=== PATIENT | male | born 1960 ===

== ENCOUNTER 2022-03-28 10:30 | Outpatient (REF) | payer MEDICARE, SELFPAY ==
[2022-03-28 11:13] LABS: MANUAL DIFF FLAG NO
[2022-03-28 11:26] LABS: Lactic Acid 1.4 mmol/L (0.5-2.0)
[2022-03-28 11:44] LABS: Basophils Absolute Auto 0.1 X10*3/uL (0.0-0.2); Basophils Percent Auto 1.1 % (0-2); Eosinophils Absolute Auto 0.4 X10*3/uL (0.0-0.4); Eosinophils Percent Auto 4.3 % (0-4); Hemoglobin 15.3 g/dl (14.0-18.0); Imm Gran Abs Auto 0.04 X10*3/uL (0.00-0.03); Imm Gran Pct Auto 0.4 % (0.0-0.4); Lymphocytes Absolute Auto 3.2 X10*3/uL (1.2-4.9); Lymphocytes Percent Auto 34.1 % (20-40); Mean Corpuscular HGB Conc 34.8 g/dl (31.0-36.0); Mean Corpuscular Hemoglobin 31.5 pg (27.0-33.0); Mean Corpuscular Volume 90.7 fL (80.0-98.0); Mean Platelet Volume 11.2 fL (9.4-12.4); Monocytes Absolute Auto 1.1 X10*3/uL (0.1-1.2); Monocytes Percent Auto 11.4 % (2-11); Neutrophils Absolute Auto 4.6 x10*3/uL (2.0-8.3); Neutrophils Percent Auto 48.7 % (45-73); Platelet Count 236 X10*3/uL (160-400); Red Blood Count 4.85 X10*6/uL (4.60-5.80); White Blood Count 9.4 X10*3/uL (4.8-10.8)
[2022-03-28 12:11] LABS: Appearance Urine Clear; Color Urine Yellow; Glucose Urine UA Negative (Negative); Leukocyte Esterase Urine Negative (Negative); Nitrite Urine Negative (Negative); PH 7.5 (5.0-9.0); Urine Blood Negative (Negative); Urine Ketones Negative (Negative); Urine Protein Negative (Neg-Trace)
[2022-03-28 12:31] LABS: Alanine Aminotransferase 23 U/L (0-40); Albumin Level 4.8 g/dL (3.5-5.0); Alkaline Phosphatase 92 U/L (39-117); Anion Gap 13 (12-20); Aspartate Amino Transferase 23 U/L (5-37); Bilirubin Total 0.9 mg/dL (0.0-1.0); Blood Urea Nitrogen 14 mg/dL (9-16); Calcium 9.7 mg/dL (8.4-10.2); Carbon Dioxide 26 mmol/L (22-29); Chloride 104 mmol/L (96-108); Cholesterol 276 mg/dL; Estimated Glomerular Filt Rate > 60; Glucose Fasting 96 mg/dL (60-99); HDL Cholesterol 45 mg/dL; LDL Cholesterol Calculated 187 mg/dl; Potassium 3.8 mmol/L (3.3-5.1); Sodium 139 mmol/L (135-145); Total Protein 7.4 g/dL (6.5-8.0); Triglycerides 222 mg/dL
[2022-03-28 12:37] LABS: Prostate Specific Antigen Scr 0.68 ng/mL (<0.05-4.0); TSH reflex Free T4 1.65 uIU/mL (0.32-4.0)
[2022-03-31 01:23] LABS: A. Phagocytphilium DNA,RT-PCR NOT DETECTED (NOT DETECTED); Babesia Microti DNA, RT-PCR NOT DETECTED (NOT DETECTED); Borrelia Miyamotoi,DNA RT-PCR NOT DETECTED (NOT DETECTED); E.Chaffeensis DNA RT-PCR NOT DETECTED (NOT DETECTED); Lyme(Borrelia ssp)DNA RT-PCR NOT DETECTED (NOT DETECTED)
[2022-04-03 08:39] LABS: CK-BB None Detected (None Detected); CK-MB 0 % (<5); CK-MM 100 % (95-100); Creatine Kinase,Total,Serum 55 U/L (44-196)
== END 2022-03-28 10:31 | disposition home or self-care (01) ==
LOC: HO.HMGCLDS 10:30
PROVIDERS: PCP Nurse Practitioner Family; Visit Provider Nurse Practitioner Family
DX: M79.10 Myalgia, unspecified site (principal); Z12.5 Encounter for screening for malignant neoplasm of prostate; E78.5 Hyperlipidemia, unspecified
CPT/HCPCS: 36415; 80053; 80061; 81003; 82552; 83605; 84153; 84443; 85025; 87798; 87801

== ENCOUNTER 2022-07-10 08:54 | Outpatient (REF) | payer MEDICARE, SELFPAY ==
[2022-07-10 12:00] LABS: Alanine Aminotransferase 22 U/L (0-40); Albumin Level 4.9 g/dL (3.5-5.0); Alkaline Phosphatase 78 U/L (39-117); Anion Gap 14 (12-20); Aspartate Amino Transferase 23 U/L (5-37); Bilirubin Total 0.9 mg/dL (0.0-1.0); Blood Urea Nitrogen 16 mg/dL (9-16); Calcium 9.4 mg/dL (8.4-10.2); Carbon Dioxide 23 mmol/L (22-29); Chloride 106 mmol/L (96-108); Cholesterol 123 mg/dL; Estimated Glomerular Filt Rate > 60; Glucose Fasting 126 mg/dL (60-99); HDL Cholesterol 37 mg/dL; LDL Cholesterol Calculated 75 mg/dl; Potassium 4.1 mmol/L (3.3-5.1); Sodium 139 mmol/L (135-145); Total Protein 7.2 g/dL (6.5-8.0); Triglycerides 58 mg/dL
== END 2022-07-10 08:55 | disposition home or self-care (01) ==
LOC: HO.HMGCLDS 08:54
PROVIDERS: PCP Nurse Practitioner Family; Visit Provider Nurse Practitioner Family
DX: E78.5 Hyperlipidemia, unspecified (principal)
CPT/HCPCS: 36415; 80053; 80061

== ENCOUNTER → 2022-07-25 14:54 | Outpatient (BNVA) | payer MEDICARE, SELFPAY | PROVIDERS: PCP Nurse Practitioner Family; Referring Provider Nurse Practitioner Family; Visit Provider Internal Medicine | DX: I49.9 Cardiac arrhythmia, unspecified (principal); R00.1 Bradycardia, unspecified | CPT/HCPCS: 99202 ==

== ENCOUNTER 2022-09-18 10:44 | Outpatient (RCR) | payer MEDICARE, SELFPAY ==
[2022-09-18 11:03] VITALS: BP 130/90; PULSE 92; O2SAT 98
--- NOTE | 2022-09-18 15:20 | MHC.PT.EP ---
[facility] [place] [facility] [place] [facility] [place] [facility] [address] Ade Meyer [address] [phone] F: [phone] F: [phone] F: [phone] F: [phone] Physical Therapy Plan of Care Date of Evaluation: Date of Surgery: Diagnosis: Myalgia of upper body. Assessment: Pt is a 62 y/o male referred to PT for myalgia of the upper body who presents with upper back myofascial pain and R > L winging scapula resulting in decreased tolerance for lifting objects of weight, performing heavy HH chores, as well as tolerance for exercise secondary to decreased B shoulder strength, increased scapular / shoulder tissue tension, decreased scapular posture, R > L winging scapula, and pain. Pt is deemed an appropriate candidate to receive skilled PT services to address their physical impairments in order to improve their functional ability. Frequency and Duration: The patient will be seen 2 x / wk x 5 wks. Short Term Goals: Initiate home program. Improve baseline pain from 4/10 to < 3/10. Physics Technician Goals: I with home program and postural ed. Improve scapular symmetry with scapular slide test. Pt will improve SPADI outcome measure by at least 13 points. Improve B serratus anterior MMT by at least 1/2 MMT grade; initial R 4-/5, L 4/5. Treatment Plan: Modalities to reduce pain, spasms and effusion. Manual therapy to restore motion and function. Therapeutic exercise to improve strength and flexibility. Neuromuscular re-education for posture and balance. Therapeutic activities to return to functional activities of daily living. Electronically signed by: Kenrick Peters PT. Please sign and return to therapist. Thank you for your referral.
--- NOTE | 2022-10-07 13:56 | MHC.PT.DC ---
[facility] [place] [facility] [place] Office [place] Office [address] Ade Meyer [address] [phone] F: [phone] F: [phone] F: [phone] F: [phone] Physical Therapy Discharge Report Diagnosis: Myalgia of upper body. Date of Surgery: Date of Evaluation: 09/18/22 Date of Discharge: 10/07/22 Treatments to Date: 1 Cancellations to Date: No Shows to Date: Discharge Status: Patient Elected to Stop Discharge Summary: Chauncey called days after his evaluation to inform PT that he is does not wish to participate in the program he initially agreed to during his evaluation. Note: Pt presented with some ideas on his condition and presented therapist with some information regarding trigger points and body toxins/ lactic acid building up in his body and having bradycardia limits his body's ability to remove these toxins. He demonstrated resistance to education that although his research holds some value his material there is modern understanding. Of note he performed non-clinical examinations on himself in the clinic such as reaching up a wall into full abduction and grinding his shoulder hard against it to demonstrate crunching in his shoulder; he was met with appropriate limiting of this behavior and did respond well. My examination found B full cervical and UE AROM, decreased scapular strength and R > L scapular winging likely as a contributing factor and he was able to hear the value of my program I had set for him at least in the moment. I informed him that therapy will include myofascial release and modalities though will not make up his full treatment session and that exercise to re-educate his postural muscles will be an important part of recovery for his condition and prevention especially as he reports passive approaches have failed. Eval vitals: O2 sat 98%, HR 92BPM, BP 130/90. Electronically signed by: Kenrick Peters PT. Please sign and return to therapist. Thank you for your referral.
== END 2022-10-07 14:00 | disposition home or self-care (01) ==
LOC: HO.PTCHIC 10:44
PROVIDERS: PCP Nurse Practitioner Family; Visit Provider Nurse Practitioner Family
DX: M79.10 Myalgia, unspecified site (principal)
CPT/HCPCS: 97110; 97161

== ENCOUNTER → 2022-10-22 08:13 | Outpatient (REF) | payer MEDICARE, SELFPAY ==
--- NOTE | 2022-10-22 08:17 | ECG_ITS ---
Test Reason : BRADYCARDIA Blood Pressure : / mmHG Vent. Rate : 112 BPM Atrial Rate : 112 BPM P-R Int : 132 ms QRS Dur : 074 ms QT Int : 388 ms P-R-T Axes : 038 040 047 degrees QTc Int : 529 ms Sinus tachycardia with Premature atrial complexes in a pattern of bigeminy Otherwise normal ECG No previous ECGs available Referred By: Vineet Cui Electronically Signed By:DEIDRA CABRALES
== END ==
LOC: HO.CARD 08:13
PROVIDERS: PCP Nurse Practitioner Family; Visit Provider Nurse Practitioner Family
DX: R00.1 Bradycardia, unspecified (principal)
CPT/HCPCS: 93005

== ENCOUNTER → 2022-10-22 08:17 | Outpatient (BNV) | payer MEDICARE, SELFPAY | PROVIDERS: PCP Nurse Practitioner Family; Visit Provider Internal Medicine | DX: I49.1 Atrial premature depolarization (principal) | CPT/HCPCS: 93010 ==

== ENCOUNTER 2023-01-13 13:25 | Outpatient (AMB) | payer MEDICARE, SELFPAY ==
--- NOTE | 2023-01-13 13:27 | A.OFFPC_ITS ---
Intake Visit Reasons: SWV G0439 03/24/22 Allergies sertraline [From Zoloft] Allergy (Intermediate, Verified 07/25/22 14:59) Fatigued Tobacco use date assessed: 07/18/22 PFSH Family History (Updated 07/25/22 @ 15:00 by Emeli Solis) Father Diabetes Mother Cancer Social History (Updated 07/25/22 @ 15:00 by mEeli Solis) Housing: House Patient Tobacco Use Status: Former Tobacco user Quit Date: quit 30 years ago e-Cigarette/Vaping Use: Never Used Second Hand Smoke Exposure: No Substance Use Type: Marijuana service: No Current occupational status: disabled Cognitive needs: No Hearing needs: No Vision needs: Yes Questionnaire Thrive Questionnaire Date Thrive assessed: 04/08/22 OSKAR-7 AMB Questionnaire OSKAR-7 Date OSKAR - 7 assessed: 04/08/22 Source: Developed by Drs. Devon Dunn, Dominique Bowman, Hira Raymundo and colleagues, with an educational thomas from [employer]. Physical exam (Primary Care) Tobacco/Smoking Status: Tobacco use Status Tobacco use date assessed 07/18/22 07/18/22 09:38 Patient Tobacco Use Status Former Tobacco user 07/25/22 15:00 e-Cigarette/Vaping Use Never Used 07/25/22 15:00 Thrive Assessment: Date of Thrive Assessment Date Thrive assessed 04/08/22 07/18/22 09:38 Coding
[2023-01-13 13:30] VITALS: BP 170/100; PULSE 73; O2SAT 97
--- NOTE | 2023-01-13 13:32 | A.OFFVIS_ITS ---
Intake Vital Signs 01/13/23 13:30 01/13/23 14:57 Weight 174 lb BP 170/100 H 150/100 H Blood Pressure Location Lt brachial Position Sitting Pulse 73 Pulse Source Pulse Oximeter Pulse Oximetry (%) 97 Oxygen Delivery Method Room Air Intake Visit Reasons: RONIT G0439 03/24/22 Allergies sertraline [From Zoloft] Allergy (Intermediate, Verified 01/13/23 13:30) Fatigued Medication List - Last Reconciled 01/13/23 by RONEY Gu No Known Home Meds Do you need a note to return to daycare/school/sports/work: No HPI HERIBERTOV G0439 03/24/22 HPI Details Pt is here for an SWV. Denies any fever or chills. [place] of care in scan pile. PPP will be scanned in chart and copy will be given to pt. HPI Comments History of Present Illness Details OV: HTN: Blood pressure is elevated today. Refuses any blood pressure medication currently. Dyslipidemia: Pt reports that he stopped taking his statin because he believes it was contributing to his afib. Will order labs. Please see previous note from cardiology. Pt is still talking about a blood flow issue. Encouraged pt to look for primary sources and research doctors that are associated with this. PFSH Family History Father Diabetes Mother Cancer Social History Housing: House Patient Tobacco Use Status: Former Tobacco user Quit Date: quit 30 years ago e-Cigarette/Vaping Use: Never Used Second Hand Smoke Exposure: No Substance Use Type: Marijuana service: No Current occupational status: disabled Cognitive needs: No Hearing needs: No Vision needs: Yes Questionnaire Medicare Wellness Checkup What gender do you identify with?: male During the past 4 weeks, how much have you been bothered by emotional problems such as feeling anxious, depressed, irritable, sad or downhearted, and blue?: slightly During the past 4 weeks, has your physical & emotional health limited your social activities with family, friends, neighbors, or groups?: slightly During the past 4 weeks, how much bodily pain have you generally had?: moderate pain During the past 4 weeks, was someone available to help you if you needed & wanted help?: no, not at all During the past 4 weeks, what was the hardest physical activity you could do for at least 2 minutes?: light Can you get to places out of walking distance without help? (For eg., can you travel alone on buses, taxis or drive your car?): Yes Can you go shopping for groceries or clothes without someone's help?: Yes Can you prepare your own meals?: Yes Can you do your housework without help?: Yes Because of any health problems, do you need the help of another person with your personal care needs such as eating, bathing, dressing or getting around the house?: Yes Can you handle your own money without help?: Yes During the past 4 weeks how have things been going for you?: good & bad parts about equal Are you having difficulties driving your car?: no Do you always fasten your seat belt when you are in a car?: yes, usually During past 4 weeks, have you been bothered by the following: never: Trouble eating well?, Teeth or denture problems? and Problems using the telephone?, seldom: Falling or dizzy when standing up and often: Tiredness or fatigue? Have you fallen 2 or more times in the past year?: No Are you afraid of falling?: No Are you a smoker?: no During the past 4 weeks, how many drinks of wine, beer, or other alcoholic beverages did you have?: no alcohol at all Have you been given information to help with the following?: no: Hazards in your house that might hurt you? and no: Keeping track of your medications? How often do you have trouble taking medicines the way you have been told to take them?: I do not have to take medicine How confident are you that you can control & manage most of your health problems?: not very confident What is your race?: White Mini Mental State Exam (MMSE) Orientation What is the (year) (season) (date) (day) (month)?: year (2022) Where are we (state) (county) (town or city) (hospital) (floor)?: state (pr) Registration Name of 3 unrelated objects clearly and slowly, then ask patient to repeat all 3 of them. (1st repeat determines score. Make sure they can repeat all three): object 1, object 2 and object 3 Attention & Calculation (CHOOSE ONE) Spell WORLD backwards (DLROW): 3 letters Recall Ask patient to repeat the 3 items from question #3.: object 1, object 2 and object 3 Language Show patient a wristwatch & ask what it is. Repeat for pencil.: watch and pencil Ask the patient to repeat the phrase 'No ifs, ands, or buts' after you.: correct Ask the patient to 'take a piece of paper with their right hand' 'fold paper in half' 'place paper on floor': take paper in right hand, fold paper in half and place paper on floor Print the sentence 'CLOSE YOUR EYES' on a piece. If patient actually closes eyes then score.: followed written direction Give patient a blank piece of paper & ask to write a sentence. Score if it contains a noun & verb.: sentence contains subject and verb Score Score: 19 Activity of Daily Living Bathing - sponge bath, tub bath or shower: receives no assistance (gets in/out by self, if usual bathing means Dressing - getting clothes from closets & drawers, including inner/outer garments & fasteners.: gets clothes & gets completely dressed without help Toileting - going to the 'toilet room' for urine/bowel elimination & cleaning self/arranging clothes: goes to toilet room, cleans self, arranges clothes without help Transfer: moves in & out of bed and chair without help (may use support object) ( when i have a flare, i roll around on the floor to extract the toxins ) Continence: controls urination/bowel movements completely by self Feeding: feeds self without help Total Score: 0 Information obtained from: patient Using telephone: independent Traveling: independent Shopping: independent Preparing meals: independent Housework: independent Taking medicine: independent Managing money: independent Review of Systems Const Reports as per HPI Physical Exam Vital Signs: Last Vital Signs Pulse 73 01/13/23 13:30 BP 150/100 H 01/13/23 14:57 Pulse Ox 97 01/13/23 13:30 Oxygen Delivery Method Room Air 01/13/23 13:30 Const General: cooperative Orientation/consciousness: patient oriented x3 Resp Effort & Inspection: normal respiratory effort Auscultation: clear to auscultation bilaterally Cardio Rate: regular rate Rhythm: regular rhythm Heart sounds: S1 normal heart sound present and S2 normal heart sound present Neuro Other: - romberg, can tandem walk, can walk and turn, can rise from sitting to standing, passed whisper test General: patient oriented x3 Psych Appearance: grossly normal Mental Status: mental status grossly normal Speech and movement: Normal speech and movement present Affect: normal affect Attitude: cooperative Thought process: Normal thought process present Thought content: Normal thought content present Insight: Good insight present (Psych) Judgement: Good judgement present (Psych) Assessment & Plan Assessment & Plan (1) Dyslipidemia: Code(s): E78.5 - Hyperlipidemia, unspecified Plan: Labs ordered (2) HTN (hypertension): Code(s): I10 - Essential (primary) hypertension Plan: Labs ordered Plan The patient agreed to the use of a medical records manager for this encounter. Scribed for RONEY Agosto by Darlin No medical records manager, on 01/13/2023 at 13:45 EST Orders: Orders Comprehensive [place]. Panel Fast Today E78.5 - Hyperlipidemia, unspecified, I10 - Essential (primary) hypertension TSH reflex Free T4 Today E78.5 - Hyperlipidemia, unspecified, I10 - Essential (primary) hypertension Lipid Panel Today E78.5 - Hyperlipidemia, unspecified, I10 - Essential (primary) hypertension Complete Blood Count Auto Diff Today E78.5 - Hyperlipidemia, unspecified, I10 - Essential (primary) hypertension UA CC w/rflx Micro + Cult Today E78.5 - Hyperlipidemia, unspecified, I10 - Essential (primary) hypertension Referrals Cologuard Test Z12.11 - Encounter for screening for malignant neoplasm of colon, Z12.12 - Encounter for screening for malignant neoplasm of rectum Coding Level of Care Code Medicare Subsequent (G0439) Est Pt Level 3 (19765) Diagnoses Dyslipidemia E78.5 HTN (hypertension) I10 Advance Care Planning Forms completed: Health Care Proxy (form given to pt), MOLST (form given to pt) and Living will (pt reports this was already done)
[2023-01-13 14:57] VITALS: BP 150/100
== END 2023-01-13 14:28 | disposition home or self-care (01) ==
PROVIDERS: Visit Provider Nurse Practitioner Family
DX: Z00.00 Encounter for general adult medical examination without abnormal findings (principal); E78.5 Hyperlipidemia, unspecified; I10 Essential (primary) hypertension
CPT/HCPCS: G0439

== ENCOUNTER 2023-01-23 08:54 | Outpatient (REF) | payer MEDICARE, SELFPAY ==
[2023-01-23 11:17] LABS: MANUAL DIFF FLAG NO
[2023-01-23 11:33] LABS: Basophils Absolute Auto 0.1 X10*3/uL (0.0-0.2); Basophils Percent Auto 0.9 % (0-2); Eosinophils Absolute Auto 0.3 X10*3/uL (0.0-0.4); Eosinophils Percent Auto 3.6 % (0-4); Hematocrit 47.8 % (42.0-52.0); Hemoglobin 16.3 g/dl (14.0-18.0); Imm Gran Abs Auto 0.03 X10*3/uL (0.00-0.03); Imm Gran Pct Auto 0.3 % (0.0-0.4); Lymphocytes Absolute Auto 2.5 X10*3/uL (1.2-4.9); Lymphocytes Percent Auto 27.8 % (20-40); Mean Corpuscular HGB Conc 34.1 g/dl (31.0-36.0); Mean Corpuscular Hemoglobin 31.8 pg (27.0-33.0); Mean Corpuscular Volume 93.4 fL (80.0-98.0); Mean Platelet Volume 12.1 fL (9.4-12.4); Monocytes Absolute Auto 0.9 X10*3/uL (0.1-1.2); Neutrophils Absolute Auto 5.1 x10*3/uL (2.0-8.3); Neutrophils Percent Auto 57.4 % (45-73); Platelet Count 219 X10*3/uL (160-400); Red Blood Count 5.12 X10*6/uL (4.60-5.80); Red Cell Distribution Width 12.9 % (11.0-16.0); White Blood Count 8.8 X10*3/uL (4.8-10.8)
[2023-01-23 11:55] LABS: Appearance Urine Clear; Color Urine Yellow; Glucose Urine UA Negative (Negative); Leukocyte Esterase Urine Negative (Negative); Nitrite Urine Negative (Negative); Specific Gravity - Urine 1.015 (1.005-1.025); UMIC TRIGGER UACC YES; Urine Blood Trace (Negative); Urine Ketones Negative (Negative); Urine Protein Negative (Neg-Trace)
[2023-01-23 12:01] LABS: Bacteria Urine None Seen (None Seen); Hyaline Casts Urine 0-2 /LPF (0-2); RBC Urine 0-2 /HPF (0-2); Squamous Epithelial Cell Urine 0-2 /HPF (0-2); WBC Urine 0-5 /HPF (0-5)
[2023-01-23 12:05] LABS: Alanine Aminotransferase 19 U/L (0-40); Albumin Level 4.7 g/dL (3.5-5.0); Alkaline Phosphatase 81 U/L (39-117); Anion Gap 11 (12-20); Aspartate Amino Transferase 22 U/L (5-37); Bilirubin Total 0.7 mg/dL (0.0-1.0); Blood Urea Nitrogen 15 mg/dL (9-16); Calcium 9.9 mg/dL (8.4-10.2); Carbon Dioxide 27 mmol/L (22-29); Chloride 104 mmol/L (96-108); Cholesterol 220 mg/dL (<200); Estimated Glomerular Filt Rate > 60; Glucose Fasting 101 mg/dL (60-99); HDL Cholesterol 48 mg/dL (>40); LDL Cholesterol Calculated 154 mg/dL (<100); Potassium 4.1 mmol/L (3.3-5.1); Sodium 138 mmol/L (135-145); Total Protein 7.9 g/dL (6.5-8.0); Triglycerides 92 mg/dL (<150)
[2023-01-23 12:09] LABS: Erythrocyte Sedimentation Rate 2 MM/HR (0-15)
[2023-01-23 12:25] LABS: TSH reflex Free T4 1.61 uIU/mL (0.32-4.0); Vitamin D 25-OH Total 48.2 ng/mL (>30)
== END 2023-01-23 08:55 | disposition home or self-care (01) ==
LOC: HO.HMGCLDS 08:54
PROVIDERS: Absent Provider Internal Medicine; PCP Nurse Practitioner Family; Visit Provider Internal Medicine
DX: R00.1 Bradycardia, unspecified (principal); I10 Essential (primary) hypertension; E78.5 Hyperlipidemia, unspecified
CPT/HCPCS: 36415; 80053; 80061; 81001; 82306; 82550; 84443; 85025; 85652

== ENCOUNTER 2023-04-24 13:08 | Outpatient (AMB) | payer MEDICARE, SELFPAY ==
--- NOTE | 2023-04-24 13:23 | A.OFFPC_ITS ---
Vital Signs 04/24/23 13:24 Height 5 ft 9 in Weight 162 lb 4 oz BMI 24.0 BP 148/92 H Blood Pressure Location Lt brachial Position Sitting Pulse 74 Pulse Source Pulse Oximeter Pulse Oximetry (%) 97 Oxygen Delivery Method Room Air Intake Visit Reasons: Cardio & rheum referral request Intake Note: Pt is here to discuss his low blood volume Allergies sertraline [From Zoloft] Allergy (Intermediate, Verified 04/24/23 13:27) Fatigued Tobacco use date assessed: 04/24/23 Dental Screening Dental Screen Date: 04/24/23 Did you have a dental visit in the last 12 months?: Yes Did you have a dental problem in the last 6 months where you did not have access to dental care?: No Was dental information given to patient?: Patient has dentist HPI Cardio & rheum referral request HPI Details Pt reports difficulty with activity. He states that he is unable to complete tasks because his muscle harden due to trapped toxins. He also reports episodes of dizziness and near-syncope/syncope. Pt states that his heart rate becomes low, has low blood flow and this causes his symptoms. Pt is adamant that he has low blood volume and blood flow. I showed pt his labs which show that his CBC is normal. He has seen cardiology and vascular for this. Pt has a different outlook on medicine than the providers he is seeing. He follows a MD from the early 80s. Due for PSA, will order. Pt's cologuard was positive. Pt is unsure if he would like a colonoscopy, he will think about this, though I will place a referral in the meantime. Denies current fever and chills. HTN: pt is aware and reports he refuses all meds. He thinks it is because he is frustrated when walking into medical facilities, like this one. PFSH Family History Father Diabetes Mother Cancer Social History Housing: House Patient Tobacco Use Status: Former Tobacco user Quit Date: quit 30 years ago e-Cigarette/Vaping Use: Never Used Second Hand Smoke Exposure: No Substance Use Type: Marijuana service: No Current occupational status: disabled Cognitive needs: No Hearing needs: No Vision needs: Yes Questionnaire PHQ-9 Over the last 2 weeks, how often have you been bothered by any of the following problems? 1. Little interest or pleasure in doing things: not at all 2. Feeling down, depressed, or hopeless: not at all 3. Trouble falling or staying asleep, or sleeping too much: more than half the days 4. Feeling tired or having little energy: nearly every day 5. Poor appetite or overeating: not at all 6. Feeling bad about yourself - or that you are a failure or have let yourself or your family down: not at all 7. Trouble concentrating on things, such as reading the newspaper or watching television: several days 8. Moving or speaking so slowly that other people could have noticed. Or the opposite - being so fidgety or restless that you have been moving around a lot more than usual: not at all 9. Thoughts that you would be better off or of hurting yourself in some way: not at all Total score: 6 Depression Screening Interpretation: Negative Depression Screening Done: Yes 12183 - PHQ-9 Billing: Yes Source: Developed by Drs. Devon Dunn, Dominique Bowman, Hira Raymundo and colleagues, with an educational thomas from [employer]. Thrive Questionnaire Date Thrive assessed: 04/24/23 I am a: Patient What is your living situation today?: I choose not to answer this question Within the past 12 months, did the food you bought not last and you didn't have the money to get more?: I choose not to answer this question Within the past 12 months, did you worry whether your food would run out before you got money to buy more?: I choose not to answer this question Do you have trouble paying for medicines?: I choose not to answer this question Do you have trouble getting transportation to medical appointments?: I choose not to answer this question Do you have trouble paying your heating and electricity bill?: I choose not to answer this question Do you have trouble taking care of your child, family member or friend?: I choose not to answer this question Do you have trouble with day-to-day activities such as bathing, preparing meals, shopping, managing finances, etc.?: I choose not to answer this question Are you currently unemployed and looking for a job?: I choose not to answer this question Are you interested in more education?: I choose not to answer this question Currently or been in a relationship where the following occur: I choose not to answer this question THRIVE Score: 0 AUDIT C Alcohol Use Questionnaire (AUDIT-C) 1. How often do you have a drink containing alcohol?: Never Total Score: 0 OSKAR-7 AMB Questionnaire OSAKR-7 Date OSKAR - 7 assessed: 04/24/23 Feeling nervous, anxious, or on edge: 1 = Several days Not being able to stop or control worryin = Not at all Worrying too much about different things: 0 = Not at all Trouble relaxin = Several days Being so restless that it is hard to sit still: 0 = Not at all Becoming easily annoyed or irritable: 0 = Not at all Feeling afraid as if something awful might happen: 0 = Not at all Total OSKAR-7 score (0-4 normal; 5-9 mild; 10-14 moderate; 15-21 severe): 2 Source: Developed by Drs. Devon Dunn, Dominique Bowman, Hira Raymundo and colleagues, with an educational thomas from [employer]. OSKAR-7 Assessment Billing OSKAR-7 Assessment Tool: OSKAR-7 Assessment 75188 Review of Systems Const Reports as per HPI Physical exam (Primary Care) Vital Signs: Last Vital Signs Pulse 74 04/24/23 13:24 BP 148/92 H 04/24/23 13:24 Pulse Ox 97 04/24/23 13:24 Oxygen Delivery Method Room Air 04/24/23 13:24 BMI result Body Mass Index 24.0 Tobacco/Smoking Status: Tobacco use Status Tobacco use date assessed 04/24/23 04/24/23 13:29 Patient Tobacco Use Status Former Tobacco user 04/24/23 13:26 e-Cigarette/Vaping Use Never Used 04/24/23 13:26 PHQ-9: PHQ-9 Score PHQ-9: Total score 6 04/24/23 14:03 Depression Screening Interpretation: Negative Thrive Assessment: Date of Thrive Assessment Date Thrive assessed 04/24/23 04/24/23 13:36 Currently or been in a relationship where the following occur: I choose not to answer this question Const General: cooperative Orientation/consciousness: patient oriented x3 Resp Effort & Inspection: normal respiratory effort Auscultation: clear to auscultation bilaterally Cardio Rate: regular rate Rhythm: regular rhythm Heart sounds: S1 normal heart sound present and S2 normal heart sound present Neuro General: patient oriented x3 Extrem Right lower extremity: no edema Left lower extremity: no edema Psych Appearance: grossly normal Mental Status: mental status grossly normal Speech and movement: Normal speech and movement present Affect: normal affect Attitude: cooperative Thought process: Normal thought process present Thought content: Normal thought content present Insight: Good insight present (Psych) Judgement: Good judgement present (Psych) Assessment and Plan Assessment & Plan (1) Dizziness: Code(s): R42 - Dizziness and giddiness Plan: Labs ordered (2) Bradycardia: Code(s): R00.1 - Bradycardia, unspecified Plan: Labs ordered (3) Screening PSA (prostate specific antigen): Code(s): Z12.5 - Encounter for screening for malignant neoplasm of prostate Plan: PSA ordered (4) Positive colorectal cancer screening using Cologuard test: Code(s): R19.5 - Other fecal abnormalities Plan: Referred to GI Plan The patient agreed to the use of a emergency medicine medical director for this encounter. Scribed for BRITTON Agosto-BC by Darlin No emergency medicine medical director, on 04/24/2023 at 13:40 EST. Orders: Orders Lipid Panel Today R00.1 - Bradycardia, unspecified, R42 - Dizziness and gi ddiness IRON PROFILE Today R00.1 - Bradycardia, unspecified, R42 - Dizziness and giddiness Complete Blood Count Auto Diff Today R00.1 - Bradycardia, unspecified, R42 - Dizziness and giddiness Comprehensive [place]. Panel Fast Today R00.1 - Bradycardia, unspecified, R42 - Dizziness and giddiness TSH reflex Free T4 Today R00.1 - Bradycardia, unspecified, R42 - Dizziness and giddiness UA CC w/rflx Micro + Cult Today R00.1 - Bradycardia, unspecified, R42 - Dizziness and giddiness Prostate Specific Antigen Scr Today Z12.5 - Encounter for screening for malignant neoplasm of prostate Referrals Gastroenterology Referral R19.5 - Other fecal abnormalities Coding Level of Care Code Est Pt Level 3 (14954) Diagnoses Dizziness R42 Bradycardia R00.1 Screening PSA (prostate specific antigen) Z12.5 Positive colorectal cancer screening using Cologuard test R19.5 Additional Codes OSKAR-7 Assessment Billing - OSKAR-7 Assessment Tool: OSKAR-7 Assessment [id number] ([id number])
[2023-04-24 13:24] VITALS: BP 148/92; PULSE 74; O2SAT 97; BMI 24.0
== END 2023-04-24 15:45 | disposition home or self-care (01) ==
PROVIDERS: PCP Nurse Practitioner Family; Visit Provider Nurse Practitioner Family
DX: R42 Dizziness and giddiness (principal); R00.1 Bradycardia, unspecified; Z12.5 Encounter for screening for malignant neoplasm of prostate; R19.5 Other fecal abnormalities
CPT/HCPCS: 99213

== ENCOUNTER 2023-11-20 09:24 | Outpatient (REF) | payer MEDICARE, SELFPAY ==
[2023-11-20 13:10] LABS: MANUAL DIFF FLAG NO
[2023-11-20 13:12] LABS: Appearance Urine Clear; Color Urine Yellow; Glucose Urine UA Negative (Negative); Leukocyte Esterase Urine Negative (Negative); Nitrite Urine Negative (Negative); PH 5.5 (5.0-9.0); Urine Blood Negative (Negative); Urine Ketones Negative (Negative); Urine Protein Negative (Neg-Trace)
[2023-11-20 13:21] LABS: Basophils Absolute Auto 0.1 X10*3/uL (0.0-0.2); Basophils Percent Auto 1.3 % (0-2); Eosinophils Absolute Auto 0.4 X10*3/uL (0.0-0.4); Eosinophils Percent Auto 5.1 % (0-4); Hemoglobin 14.4 g/dl (14.0-18.0); Imm Gran Abs Auto 0.01 X10*3/uL (0.00-0.03); Imm Gran Pct Auto 0.1 % (0.0-0.4); Lymphocytes Absolute Auto 2.5 X10*3/uL (1.2-4.9); Mean Corpuscular HGB Conc 34.3 g/dl (31.0-36.0); Mean Corpuscular Hemoglobin 31.6 pg (27.0-33.0); Mean Corpuscular Volume 92.3 fL (80.0-98.0); Mean Platelet Volume 11.7 fL (9.4-12.4); Monocytes Absolute Auto 0.7 X10*3/uL (0.1-1.2); Monocytes Percent Auto 10.7 % (2-11); Neutrophils Absolute Auto 3.2 x10*3/uL (2.0-8.3); Neutrophils Percent Auto 46.8 % (45-73); Platelet Count 206 X10*3/uL (160-400); Red Blood Count 4.55 X10*6/uL (4.60-5.80); Red Cell Distribution Width 13.4 % (11.0-16.0); White Blood Count 6.9 X10*3/uL (4.8-10.8)
[2023-11-20 13:59] LABS: Alanine Aminotransferase 19 U/L (0-40); Albumin Level 4.7 g/dL (3.5-5.0); Alkaline Phosphatase 56 U/L (39-117); Anion Gap 13 (12-20); Aspartate Amino Transferase 21 U/L (5-37); Bilirubin Total 0.8 mg/dL (0.0-1.0); Blood Urea Nitrogen 17 mg/dL (9-16); Calcium 9.8 mg/dL (8.4-10.2); Carbon Dioxide 27 mmol/L (22-29); Chloride 103 mmol/L (96-108); Cholesterol 218 mg/dL (<200); Estimated Glomerular Filt Rate > 60; Glucose Fasting 93 mg/dL (60-99); HDL Cholesterol 46 mg/dL (>40); Iron 100 mcg/dL (45-160); LDL Cholesterol Calculated 157 mg/dL (<100); Percent Iron Saturation 39 % (15-50); Potassium 4.5 mmol/L (3.3-5.1); Sodium 138 mmol/L (135-145); TSH reflex Free T4 1.22 uIU/mL (0.32-4.0); Total Iron Binding Capacity 258 mcg/dL (228-428); Total Protein 7.3 g/dL (6.5-8.0); Triglycerides 76 mg/dL (<150); Unsaturated Iron Binding 158 ug/dL
[2023-11-20 14:04] LABS: Prostate Specific Antigen Scr 0.53 ng/mL (<0.05-4.0)
== END 2023-11-20 09:25 | disposition home or self-care (01) ==
LOC: HO.HMGCLDS 09:24
PROVIDERS: PCP Nurse Practitioner Family; Visit Provider Nurse Practitioner Family
DX: R42 Dizziness and giddiness (principal); R00.1 Bradycardia, unspecified; Z12.5 Encounter for screening for malignant neoplasm of prostate
CPT/HCPCS: 36415; 80053; 80061; 81003; 83540; 84153; 84443; 85025

== ENCOUNTER 2023-11-25 08:06 | Outpatient (AMB) | payer MEDICARE, SELFPAY ==
[2023-11-25 08:09] VITALS: BP 140/90; PULSE 72; O2SAT 97; BMI 22.3
--- NOTE | 2023-11-25 08:09 | A.OFFPC_ITS ---
Vital Signs 11/25/23 08:09 Height 5 ft 9 in Weight 151 lb BMI 22.3 BP 140/90 H Blood Pressure Location Rt brachial Position Sitting Pulse 72 Pulse Source Pulse Oximeter Pulse Oximetry (%) 97 Intake Visit Reasons: Follow up - need new rheum referral Intake Note: pt is here for follow up, requesting rheum referral Waiter Required: No Accompanied by: Self / Same As Patient Allergies sertraline [From Zoloft] Allergy (Intermediate, Verified 11/25/23 08:09) Fatigued Tobacco use date assessed: 04/24/23 Dental Screening Dental Screen Date: 04/24/23 HPI Follow up - need new rheum referral HPI Details Pt continues to talk about blood flow, please see previous documentation. He reports that his muscle harden when his heart rate is lower. Pt reports pain to his bilat thighs and scapular regions. He recently bought a bike which has been helping. Dyslipidemia: Pt refuses statins. Pt would like to do his own research on zetia. He is currently doing keto and losing weight. Pt's cologuard was positive. Referral to GI was placed but pt refuses this. Denies any fever or chills. PFSH Family History Father Diabetes Mother Cancer Social History Housing: House Patient Tobacco Use Status: Former Tobacco user e-Cigarette/Vaping Use: Never Used Second Hand Smoke Exposure: No Substance Use Type: Marijuana service: No Current occupational status: disabled Cognitive needs: No Hearing needs: No Vision needs: Yes Questionnaire Thrive Questionnaire Date Thrive assessed: 04/24/23 OSKAR-7 AMB Questionnaire OSKAR-7 Date OSKAR - 7 assessed: 04/24/23 Source: Developed by Drs. Devon Dunn, Dominique Bowman, Hira Raymundo and colleagues, with an educational thomas from [employer] Review of Systems Const Reports as per HPI Physical exam (Primary Care) Vital Signs: Last Vital Signs Pulse 72 11/25/23 08:09 BP 140/90 H 11/25/23 08:09 Pulse Ox 97 11/25/23 08:09 BMI result Body Mass Index 22.3 Tobacco/Smoking Status: Tobacco use Status Tobacco use date assessed 04/24/23 11/25/23 08:13 Patient Tobacco Use Status Former Tobacco user 11/25/23 08:13 e-Cigarette/Vaping Use Never Used 11/25/23 08:13 Thrive Assessment: Date of Thrive Assessment Date Thrive assessed 04/24/23 11/25/23 08:13 Const General: cooperative Orientation/consciousness: patient oriented x3 Resp Effort & Inspection: normal respiratory effort Auscultation: clear to auscultation bilaterally Cardio Rate: regular rate Rhythm: regular rhythm Heart sounds: S1 normal heart sound present and S2 normal heart sound present Neuro General: patient oriented x3 Psych Appearance: grossly normal Mental Status: mental status grossly normal Speech and movement: Normal speech and movement present Affect: normal affect Attitude: cooperative Thought process: Normal thought process present Thought content: Normal thought content present Insight: Good insight present (Psych) Judgement: Good judgement present (Psych) Assessment and Plan Assessment & Plan (1) Dyslipidemia: Code(s): E78.5 - Hyperlipidemia, unspecified Plan: pt considering zetia, he will look into this and let us know. Plan The patient agreed to the use of a medical professionals for this encounter. Scribed for BRITTON Agosto-BC by Darlin No medical professionals, on 11/25/2023 at 08:15 EST. Orders: Orders Complete Blood Count Auto Diff Today E78.5 - Hyperlipidemia, unspecified Comprehensive [place]. Panel Fast Today E78.5 - Hyperlipidemia, unspecified Lipid Panel Today E78.5 - Hyperlipidemia, unspecified Coding Level of Care Code Est Pt Level 3 (25569) Diagnoses Dyslipidemia E78.5
== END 2023-11-25 08:32 | disposition home or self-care (01) ==
PROVIDERS: PCP Nurse Practitioner Family; Visit Provider Nurse Practitioner Family
DX: E78.5 Hyperlipidemia, unspecified (principal)
CPT/HCPCS: 99213

== ENCOUNTER 2024-05-24 13:41 | Outpatient (AMB) | payer MEDICARE, SELFPAY ==
[2024-05-24 13:43] VITALS: BP 138/86; PULSE 69; O2SAT 98; BMI 24.4
--- NOTE | 2024-05-24 13:43 | A.OFFVIS_ITS ---
Intake Vital Signs 05/24/24 13:43 Height 5 ft 9 in Weight 165 lb BMI 24.4 BP 138/86 Blood Pressure Location Lt brachial Position Sitting Pulse 69 Pulse Source Pulse Oximeter Pulse Oximetry (%) 98 Oxygen Delivery Method Room Air Intake Visit Reasons: SWV G0439 Allergies sertraline [From Zoloft] Allergy (Intermediate, Verified 05/24/24 13:43) Fatigued Do you need a note to return to daycare/school/sports/work: No HPI SWV G0439 HPI Details awv, ccc in scan pile, ppp in scan pile. previous cologuard was +. pt refused colonoscopy, but is will to do another cologuard HPI Comments History of Present Illness Details HTN: stable, denies any SOB, CP, dizziness, ANDUJAR. NOTE: pt is still talking about blood flow , and how us doctors dont understand blood flow and the ay it affects the body??? please see previous documentation PFSH Surgical History No pertinent past surgical history Family History Father Diabetes Mother Cancer Social History Housing: House Patient Tobacco Use Status: Former Tobacco user e-Cigarette/Vaping Use: Never Used Second Hand Smoke Exposure: No Substance Use Type: Marijuana service: No Current occupational status: disabled Cognitive needs: No Hearing needs: No Vision needs: Yes Questionnaire Medicare Wellness Checkup What gender do you identify with?: male During the past 4 weeks, how much have you been bothered by emotional problems such as feeling anxious, depressed, irritable, sad or downhearted, and blue?: not at all During the past 4 weeks, has your physical & emotional health limited your social activities with family, friends, neighbors, or groups?: moderately During the past 4 weeks, how much bodily pain have you generally had?: moderate pain During the past 4 weeks, was someone available to help you if you needed & wanted help?: yes, quite a bit During the past 4 weeks, what was the hardest physical activity you could do for at least 2 minutes?: moderate Can you get to places out of walking distance without help? (For eg., can you travel alone on buses, taxis or drive your car?): Yes Can you go shopping for groceries or clothes without someone's help?: Yes Can you prepare your own meals?: Yes Can you do your housework without help?: Yes Because of any health problems, do you need the help of another person with your personal care needs such as eating, bathing, dressing or getting around the house?: No Can you handle your own money without help?: Yes During the past 4 weeks, how would you rate your health in general?: fair During the past 4 weeks how have things been going for you?: good & bad parts about equal Are you having difficulties driving your car?: no Do you always fasten your seat belt when you are in a car?: yes, usually During past 4 weeks, have you been bothered by the following: never: Sexual problems?, Trouble eating well? and Problems using the telephone?, seldom: Fall ing or dizzy when standing up and often: Teeth or denture problems? and Tiredness or fatigue? Have you fallen 2 or more times in the past year?: Yes Are you afraid of falling?: No Are you a smoker?: no During the past 4 weeks, how many drinks of wine, beer, or other alcoholic beverages did you have?: no alcohol at all Do you exercise for about 20 minutes 3 or more times a week?: yes, most of the time Have you been given information to help with the following?: yes: Hazards in your house that might hurt you? and yes: Keeping track of your medications? How often do you have trouble taking medicines the way you have been told to take them?: I do not have to take medicine How confident are you that you can control & manage most of your health problems?: not very confident What is your race?: White Mini Mental State Exam (MMSE) Orientation What is the (year) (season) (date) (day) (month)?: year, season, date, day and month Where are we (state) (county) (town or city) (hospital) (floor)?: state, county, town or city, hospital/clinic and floor Registration Name of 3 unrelated objects clearly and slowly, then ask patient to repeat all 3 of them. (1st repeat determines score. Make sure they can repeat all three): object 1, object 2 and object 3 Attention & Calculation (CHOOSE ONE) Spell WORLD backwards (DLROW): 5 letters Recall Ask patient to repeat the 3 items from question #3.: object 1, object 2 and object 3 Language Show patient a wristwatch & ask what it is. Repeat for pencil.: watch and pencil Ask the patient to repeat the phrase 'No ifs, ands, or buts' after you.: incorrect Ask the patient to 'take a piece of paper with their right hand' 'fold paper in half' 'place paper on floor': take paper in right hand, fold paper in half and place paper on floor Print the sentence 'CLOSE YOUR EYES' on a piece. If patient actually closes eyes then score.: followed written direction Give patient a blank piece of paper & ask to write a sentence. Score if it contains a noun & verb.: sentence contains subject and verb Ask patient to copy figure of intersecting pentagons exactly. Score if all 10 angles & 2 intersects are included.: all 10 angles present & 2 are intersected Score Score: 29 Activity of Daily Living Bathing - sponge bath, tub bath or shower: receives no assistance (gets in/out by self, if usual bathing means Dressing - getting clothes from closets & drawers, including inner/outer garments & fasteners.: gets clothes & gets completely dressed without help Toileting - going to the 'toilet room' for urine/bowel elimination & cleaning self/arranging clothes: goes to toilet room, cleans self, arranges clothes without help Transfer: moves in & out of bed and chair without help (may use support object) Continence: controls urination/bowel movements completely by self Feeding: feeds self without help Total Score: 0 Information obtained from: patient Using telephone: independent Traveling: independent Shopping: independent Preparing meals: independent Housework: independent Taking medicine: independent Managing money: independent PHQ-9 Over the last 2 weeks, how often have you been bothered by any of the following problems? 1. Little interest or pleasure in doing things: several days 2. Feeling down, depressed, or hopeless: not at all 3. Trouble falling or staying asleep, or sleeping too much: more than half the days 4. Feeling tired or having little energy: more than half the days 5. Poor appetite or overeating: not at all 6. Feeling bad about yourself - or that you are a failure or have let yourself or your family down: not at all 7. Trouble concentrating on things, such as reading the newspaper or watching television: several days 8. Moving or speaking so slowly that other people could have noticed. Or the opposite - being so fidgety or restless that you have been moving around a lot more than usual: not at all 9. Thoughts that you would be better off or of hurting yourself in some way: not at all Total score: 6 Depression Screening Interpretation: Negative Depression Screening Done: Yes [id number] - PHQ-9 Billing: Yes Source: Developed by Drs. Devon Dunn, Hira Valente and colleagues, with an educational thomas from [employer]. OSKAR-7 AMB Questionnaire OSKAR-7 Date OSKAR - 7 assessed: 05/24/24 Feeling nervous, anxious, or on edge: 0 = Not at all Not being able to stop or control worryin = Not at all Worrying too much about different things: 0 = Not at all Trouble relaxin = Several days Being so restless that it is hard to sit still: 0 = Not at all Becoming easily annoyed or irritable: 0 = Not at all Feeling afraid as if something awful might happen: 0 = Not at all Total OSKAR-7 score (0-4 normal; 5-9 mild; 10-14 moderate; 15-21 severe): 1 Source: Developed by Drs. Devon Dunn, Dominique Bowman, Hira Raymundo and colleagues, with an educational thomas from [employer]. OSKAR-7 Assessment Billing OSKAR-7 Assessment Tool: OSKAR-7 Assessment 23737 Physical Exam Vital Signs: Last Vital Signs Pulse 69 05/24/24 13:43 BP 138/86 05/24/24 13:43 Pulse Ox 98 05/24/24 13:43 Oxygen Delivery Method Room Air 05/24/24 13:43 BMI result Body Mass Index 24.4 Neuro Other: neg rhomberg, able to stand from sitting position, able to tandem walk, passed whisper test Assessment & Plan Assessment & Plan (1) Encounter for annual wellness visit (AWV) in Medicare patient: Code(s): Z00.00 - Encounter for general adult medical examination without abnormal findings (2) HTN (hypertension): Code(s): I10 - Essential (primary) hypertension Plan . Orders: Orders Comprehensive [place]. Panel Fast Today I10 - Essential (primary) hypertension, Z00.00 - Encounter for general adult medical examination without abnormal findings Lipid Panel Today I10 - Essential (primary) hypertension, Z00.00 - Encounter for general adult medical examination without abnormal findings Complete Blood Count Auto Diff Today I10 - Essential (primary) hypertension, Z00.00 - Encounter for general adult medical examination without abnormal findings TSH reflex Free T4 Today I10 - Essential (primary) hypertension, Z00.00 - Encounter for general adult medical examination without abnormal findings UA CC w/rflx Micro + Cult Today I10 - Essential (primary) hypertension, Z00.00 - Encounter for general adult medical examination without abnormal findings Prostate Specific Antigen Scr Today I10 - Essential (primary) hypertension, Z00.00 - Encounter for general adult medical examination without abnormal findings Referrals Cologuard Test Z12.11 - Encounter for screening for malignant neoplasm of colon, Z12.12 - Encounter for screening for malignant neoplasm of rectum Quality Reporting (2019) Depression/Bipolar (159/160/161/177) PHQ-9: Total score: 6 Coding Level of Care Code Medicare Subsequent (G0439) Diagnoses Encounter for annual wellness visit (AWV) in Medicare patient Z00.00 HTN (hypertension) I10 CPT Codes Advance Care Planning - Time spent: 1-15 minutes, on File ([id number]) Additional Codes OSKAR-7 Assessment Billing - OSKAR-7 Assessment Tool: OSKAR-7 Assessment 14357 ([id number]) PHQ-9 - 75038 - PHQ-9 Billing: Yes ([id number]) Advance Care Planning Forms completed: Health Care Proxy (done), MOLST (done) and Living will (done) Time spent: 1-15 minutes, on File Actual minutes spent: 8
--- OUTSIDE RECORDS SUMMARY | 2024-05-24 16:09 | XMS_ITS | Clinical Summary ---
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 Name Role Phone LawVineet castro Cy ROGERS Primary Care Provider Surgical History Surgery Date Site/Laterality Comments TONSILLECTOMY 1967 PROCEDURE: HISTORICAL TONSILLECTOMY Medical History Medical History Date Comments Insomnia 09/21/2013 DX:Insomnia Myofascial pain 11/24/2013 DX:Myofascial pa in Fibromyalgia 11/24/2013 DX:Fibromyalgia Family History Medical History Relation Name Comments Diabetes Father type 2 Other cancer Mother pancreatic canc er, Relation Name Status Comments Father Alive Mother Social History Tobacco Use Types Packs/Day Years Used Date Smoking Tobacco: Former Cigarettes Q uit: 03/24/1993 Smokeless Tobacco: Never Alcohol Use Standard Drinks/Week Comments Not Currently 0 (1 standard drink = 0.6 oz pur e alcohol) Sex and Gender Information Value Date Recorded Sex Assigned at Not on file Legal Sex Male 2:35 AM EST Gender Identity Not on file Sexual Orientation Not on file Obstetrics History Last Filed Vital Signs Vital Sign Reading Time Taken Comments Blood Pressure 120/80 01/22/2023 7:37 AM EDT Sit ting L Arm Pulse 111 01/22/2023 7:37 AM EDT Temperature - - Respiratory Rate - - Oxygen Saturation - - Inhaled Oxygen Concentration - - Weight 71.2 kg (157 lb) 01/22/2023 7:37 AM EDT Height 175.3 cm (5' 9 ) 01/22/2023 7:37 AM EDT Body Mass Index 23.18 01/22/2023 7:37 AM EDT Plan of Treatment Health Maintenance Due Date Last Done Comments Pneumococcal Vaccine: 50+ Ye ars (1 of 1 - PCV) 05/31/2011 Zoster Vaccines (1 of 2) 05/31/2011 Cholesterol Screening (Lipid Panel) 02/24/2022 Colorectal Cancer Screening: Colonoscopy 02/24/2022 Depression Screening 02/24/2022 HIV Screening 02/24/2022 Hepatitis C Screening 02/24/2022 Social Influencers of Health Screening 02/24/2022 DTaP,Tdap,and Td Vaccines (2 - Td or Tdap) 01/22/2023 01/22/2013 COVID-19 Vaccine (1 - 2023-2 5 season) 2023 Influenza Vaccine (#1) 2023 12/21/2014 RSV Immunization Patients 60 + Years Old (1 - 1-dose 75+ series) 2036 HIB Vaccines Aged Out No longer eligi ble based on patient's age to complete this topic HPV Vaccines Aged Out No longer eligi ble based on patient's age to complete this topic Hepatitis A Vaccines Aged Out No long er eligible based on patient's age to complete this topic Hepatitis B Vaccines Aged Out No long er eligible based on patient's age to complete this topic IPV Vaccines Aged Out No longer eligi ble based on patient's age to complete this topic MMR Vaccines Aged Out No longer eligi ble based on patient's age to complete this topic Meningococcal ACWY Vaccine Aged Out N o longer eligible based on patient's age to complete this topic Meningococcal B Vacine Aged Out No lo nger eligible based on patient's age to complete this topic Pneumococcal Vaccine: Pediat rics (0 to 5 Years) and At-Risk Patients (6 to 64 Years) Aged Out No longer eligi ble based on patient's age to complete this topic RSV Immunization Patients Un nancy 20 months Aged Out No longer eligible b ased on patient's age to complete this topic Varicella Vaccines Aged Out No longer eligible based on patient's age to complete this topic Care Teams Yarn Mercerizer Operator Helper Relationship Specialty Start Date End Date Vineet Cui NP [address] [facility] SOREN Lizarraga PCP - General 08/31/21
== END 2024-05-24 14:47 | disposition home or self-care (01) ==
PROVIDERS: PCP Nurse Practitioner Family; Visit Provider Nurse Practitioner Family
DX: Z00.00 Encounter for general adult medical examination without abnormal findings (principal); I10 Essential (primary) hypertension

== ENCOUNTER → 2024-05-24 13:41 | Outpatient (BNVA) | payer MEDICARE, SELFPAY | PROVIDERS: PCP Nurse Practitioner Family; Visit Provider Nurse Practitioner Family | DX: Z00.00 Encounter for general adult medical examination without abnormal findings (principal); I10 Essential (primary) hypertension | CPT/HCPCS: 96127 ==

== ENCOUNTER 2024-10-26 08:15 | Outpatient (REF) | payer MEDICARE, SELFPAY ==
[2024-10-26 11:07] LABS: PSA,Total (Free>4and<10) 1.34 ng/mL (0.00-4.00)
== END 2024-10-26 08:16 | disposition home or self-care (01) ==
LOC: HO.HMGCLDS 08:15
PROVIDERS: PCP Nurse Practitioner Family; Visit Provider Physician Assistant Medical
DX: R39.15 Urgency of urination (principal); R30.9 Painful micturition, unspecified; N39.0 Urinary tract infection, site not specified; Z12.5 Encounter for screening for malignant neoplasm of prostate
CPT/HCPCS: 36415; 81003; 84153; 87086; 99212

== ENCOUNTER 2024-10-26 08:15 | Outpatient (AMB) | payer MEDICARE, SELFPAY ==
--- OUTSIDE RECORDS SUMMARY | 2024-10-26 08:22 | XMS_ITS | Clinical Summary ---
Author Organization Located Within [facility] Address [address] [place] [id number] Phone Care Team Providers Care Environmental Compliance Engineer Name Role Phone Unavailable Primary Care Provider Unavailabl e Allergies Active Allergy Reactions Criticality Noted Date Comments Sertraline 09/28/2014 lethargy Medications diclofenac sodium (VOLTAREN) 75 MG EC tablet Take 75 mg by mouth daily as needed. Active Active Problems Problem Noted Date Diagnosed Date Low testosterone in male 04/14/2018 Overview (12/14/2018): On chronic treatment Assessment & Plan (02/11/2019 10:16 AM EST): This is a patient who was found to have low testosterone levels by Dr. Rios approximately 2 to 3 years ago. I do not know when the level of testosterone was drawn because it can be low in the afternoon and that would explain low testosterone levels. I do not know that an endocrine work-up was done for evaluation of hypogonadism. The point is that the patient has been on the medications for 2 to 3 years he felt that it helped him. He does not want to come off the medication he wants to continue therapy. At this point I can check gonadotropin levels and prolactin levels just to have a baseline result starting from now. I suspect that the LH and FSH are going to be suppressed due to exogenous testosterone therapy. So there is really now much to do about it we just have to continue therapy because if he was not hypogonadal to begin with then he would have central hypogonadism at this point after using exogenous therapy and discontinuing the medication will make him feel very poorly. If he wanted to discontinue the medication that could possibly be arranged and he could be gradually done and see if he can tolerate being off the medication. However this is not the case he wants to continue with therapy and this is what I will do. I have informed them that he does need to follow with me every 6 months because this is a controlled substance and we have to monitor the levels. He is due for repeat PSA next year so I have requested this. He has no history of prostate cancer. He has no history of cardiovascular disease but I will check his LDL levels and HDL levels. Usually testosterone therapy can decrease the HDL levels. This could be associated with increased cardiovascular disease. I have also requested to hemoglobin hematocrit because the hemoglobin hematocrit 10 to increase with testosterone therapy and I informed him that if the hemoglobin hematocrit increase we have to decrease the testosterone levels. Furthermore testosterone levels have to be within the reference range. His current testosterone levels are in the high normal and that is fine as long as then the normal reference range. He is on a high dose of testosterone 200 mg every 10 days and I have renewed this prescription and giving him enough syringes to last him for 6 months. I have informed the patient that if I do not have the lab work prior to the follow-up visit I cannot renew his prescription again because is a controlled substance. Assessment & Plan (07/03/2018 9:31 AM EDT): Continue testosterone injections. Re-evaluate in 4 months. Assessment & Plan (04/14/2018 5:07 PM EST): Restart testosterone. Patient needs to call for his monthly regimen. Adjustment disorder with depressed mood 02/12/20 16 Generalized anxiety disorder 02/12/2016 Hyperlipidemia 07/28/2014 Fibromyalgia 11/24/2013 Assessment & Plan (04/14/2018 5:06 PM EST): Try to reduce the amount of foam rolling. Myofascial pain 11/24/2013 Overview (05/25/2019): So far has been unable to identify any rheumatologic disorder. He briefly saw Dr. Shaikh in [place] years ago, and has seen Dr. Rios. Sed rate and CRP and MO were negative in November. I suggested he go to [facility] [place] but says he cannot drive to [place]. He may need a muscle biopsy Insomnia 09/21/2013 Immunizations Immunization Administration Dates Next Due Influenza Quadrivalent Prese rvative Free IM 01/16/2018 Influenza Quadrivalent w/ Preservative IM 02/02/2019 Influenza Trivalent Preserva tive Free IM 02/21/2016 Influenza Trivalent w/ Prese rvative IM 12/21/2014,01/11/2014,02/22/2013,2012 Influenza, Unspecified Formulation 01/18/2020, Td, unspecified formulation 01/22/2013 Family History Medical History Relation Comments Diabetes Father Cancer Mother Depression Neg Hx Heart failure Neg Hx Relation Status Comments Brother Alive Daughter 1 Alive Daughter 2 Alive Father Alive Mother Social History Tobacco Use Types Packs/Day Years Used Date Smoking Tobacco: Former Cigarettes 0.5 10 0 03/24/1978 - 03/24/1988 Smokeless Tobacco: Never Alcohol Use Standard Drinks/Week Comments Yes 1 (1 standard drink = 0.6 oz pure alcohol) once in a while, one or two drinks a year- 12/14 Education Answer Date Recorded Are you interested in more education? Not on ani e 07/19/2022 Are you concerned about learning? Not on file 07/19/2022 No 07/19/2022 No 07/19/2022 Digital Access Answer Date Recorded No 08/16/2022 No 08/16/2022 No 08/16/2022 Reliable internet access at home? Not on file 08/16/2022 Device with a working camera? Not on file Sex and Gender Information Value Date Recorded Sex Assigned at Not on file Legal Sex Male 3:03 PM EDT Gender Identity Not on file Sexual Orientation Not on file Last Filed Vital Signs Vital Sign Reading Time Taken Comments Blood Pressure 108/56 11/23/2020 11:42 AM EDT Pulse 68 11/23/2020 11:42 AM EDT Temperature 36.5 C (97.7 F) 11/23/2020 11:42 AM EDT Respiratory Rate - - Oxygen Saturation 97% 11/23/2020 11:42 AM EDT Inhaled Oxygen Concentration - - Weight 73.9 kg (163 lb) 11/23/2020 11:42 AM EDT Height 173.5 cm (5' 8.31 ) 11/23/2020 11:42 AM E DT Body Mass Index 24.56 11/23/2020 11:42 AM EDT Plan of Treatment Health Maintenance Due Date Last Done Comments SMOKING Hx and SMOKELESS TOBACCO SCREENING 1974 HEPATITIS C SCREENING 05/31/1979 HIV ONE-TIME SCREENING (18-6 5 YEARS) 05/31/1979 COLONOSCOPY 2006 FIT TEST 2006 FOBT 2006 SIGMOIDOSCOPY 2006 VIRTUAL COLONOSCOPY 2006 PNEUMOCOCCAL VACCINES (50+ years) (1 of 1 - PCV) 05/31/2011 ZOSTER VACCINES (1 of 2) 05/31/2011 DEPRESSION SCREENING 05/24/2020 05/25/2019 COLOGUARD 06/09/2022 06/10/2019, 05/25/2019 COLORECTAL CANCER SCREENING 06/09/2022 Adult Td,Tdap Booster 01/22/2023 01/22/2013 COVID-19 VACCINE (2 - 2023-2 5 season) 2023 11/08/2020 LIPID PANEL 06/08/2026 06/08/2021, 12/14/2018, 12/14/2018 RSV VACCINE (1 - 1-dose 75+ series) 2036 HEPATITIS A VACCINES Aged Out No long er eligible based on patient's age to complete this topic HIB VACCINES Aged Out No longer eligi ble based on patient's age to complete this topic MENINGOCOCCAL VACCINES (ACWY) Aged Out No longer eligible based on patient's age to complete this topic MENINGOCOCCAL VACCINES (B) Aged Out N o longer eligible based on patient's age to complete this topic Medical Devices Not on file Procedures Procedure Name Priority Date/Time Associated Diagnosis Comments OUTSIDE COLOGUARD Routine 06/10/2019 LIPID PANEL Routine 12/14/2018 2:22 PM EDT Myofascial pain from Last 3 Months or Most Recently Relevant to Health Maintenance Results * OUTSIDE COLOGUARD (06/10/2019) us Alejandro Moran MD HEALTH MAINTENANCE Final Result * (ABNORMAL) Lipid panel (12/14/2018 2:22 PM EDT) HDL 43 mg/dL [facility] Comment: Interpretation <40 mg/dL: Low HDL cholesterol (major risk factor for CHD) Greater than or equal to 60 mg/dL: High HDL cholesterol ( negative risk factor for CHD) HDL - cholesterol is affected by a number of factors, e.g. smoking, excerise, hormones, sex and age. CHOLESTEROL 185 0 - 240 mg/dL [facility] TRIGLYCERIDES 188(H) 30 - 160 mg/dL [facility] LDL 104 50 - 129 mg/dL [facility] Comment: LDL levels in terms of risk for coronary heart disease: <100 mg/dL: Optimal 100-129 mg/dL: Near or above optimal 130-159 mg/dL: Borderline high 160-189 mg/dL: High >190 mg/dL: Very High CARDIAC RISK RATIO 4.3 3.4 - 5.0 C [facility] Blood 12/14/2018 2:22 PM EDT 12/14/2018 2:25 PM EDT us Alejandro Moran MD LAB BLOOD ORDERABLES Final Resu lt [facility] [address] [place] [address] from Last 3 Months or Most Recently Relevant to Health Maintenance Insurance MEDICARE PART A & B MEDICARE PART A & B MEDICARE PART A & B MEDICARE PART A & B MEDICARE PART A & B MEDICARE PART A & B MEDICARE PART A & B MEDICARE PART A & B MEDICARE PART A & B Additional Source Comments The information contained in this document represents components of the legal health record. It is not the complete legal health record.Located Within [facility]
--- OUTSIDE RECORDS SUMMARY | 2024-10-26 08:23 | XMS_ITS | Clinical Summary ---
Author Organization [facility] Address [address] [place] [address] Care Team Providers Care Fluorescent Solution Mixer Name Role Phone LawVineet castro Cy ROGERS [...] Panel) 02/24/2022 Colorectal Cancer Screening: Colonoscopy 02/24/2022 HIV Screening 02/24/2022 Hepatitis C Screening 02/24/2022 Social Influencers of Health Screening 02/24/2022 DTaP,Tdap,and Td Vaccines (2 - Td or Tdap) 01/22/2023 01/22/2013 COVID-19 Vaccine (1 - 2023-2 5 season) 2023 Depression Screening 03/24/2024 Influenza Vaccine (#1) 2024 12/21/2014 RSV Immunization Adult Patie nts (1 - 1-dose 75+ series) 2036 HIB [...] age to complete this topic Meningococcal B Vaccine Aged Out No l onger eligible based on patient's age to complete this topic RSV Immunization Patients Un nancy 20 months Aged Out No longer eligible b ased on patient's age to complete this topic Varicella Vaccines Aged Out No longer eligible based on patient's age to complete this topic Care Teams Fluorescent Solution Mixer Relationship Specialty Start Date End Date Vineet Cui NP [address] [facility] [place], [place] PCP - General 08/31/21
[2024-10-26 08:27] VITALS: BP 140/70; PULSE 71; TEMP 36.4; O2SAT 97; BMI 22.0
--- NOTE | 2024-10-26 08:27 | MHC.OFFWIV ---
Intake Vital Signs 10/26/24 08:27 Height 5 ft 9 in Weight 149 lb BMI 22.0 BP 140/70 H Blood Pressure Location Lt brachial Position Sitting Pulse 71 Pulse Source Pulse Oximeter Temp 97.6 F Temp Source Oral Pulse Oximetry (%) 97 Oxygen Delivery Method Room Air Intake Visit Reasons: EP-uti Intake Note: presents with discomfort to bladder and mild pain with urinating Patient Tobacco Use Status: Former Tobacco user Allergies sertraline (From Zoloft) Allergy (Intermediate, Verified 10/26/24 08:31) Fatigued Do you need a note to return to daycare/school/sports/work: No HPI HPI Comments History of Present Illness Details History - The patient is a 64-year-old male presenting with urinary discomfort and pain during urination. - He reports bladder discomfort and painful urination for two weeks, with small urine volumes. - Cranberry juice provided temporary relief, but symptoms recurred. - Long-standing low urinary flow and pressure were noted, with a normal prostate exam last year. - Hematuria has occurred multiple times, with no blood present in his urine. - Kidney stones were previously diagnosed but not confirmed on imaging. - He denies fever, chills, CP, SOB, n/v/d, constipation, hematuria, penile discharge, or testicular pain. Physical Exam General: Cooperative, healthy appearing, comfortable, no acute distress and well developed Cardiac: Bradycardia noted. Normal S1 and S2. RRR, no M/R/G noted. Respiratory: Normal respiratory effort and able to speak in complete sentences. Clear to auscultation bilaterally. No w/r/r noted. Skin: No rashes or lesions noted. GI: Normal inspection. Normal BS noted. Soft, non-tender, non-distended. No TTP of all 4 quadrants. No guarding or rebound tenderness noted. Back: Negative CVA bilaterally Patient was informed and verbally consented to the use of an ambient scribe for clinic note documentation during this visit [facility] Surgical History No pertinent past surgical history Family History Father Diabetes Mother Cancer Social History Housing: House Patient Tobacco Use Status: Former Tobacco user e-Cigarette/Vaping Use: Never Used Second Hand Smoke Exposure: No Substance Use Type: Marijuana service: No Current occupational status: disabled Cognitive needs: No Hearing needs: No Vision needs: Yes Review of Systems Const All systems reviewed & are unremarkable except as noted in HPI and below Physical Exam Vital Signs: Last Vital Signs Temp 97.6 F 10/26/24 08:27 Pulse 71 10/26/24 08:27 BP 140/70 H 10/26/24 08:27 Pulse Ox 97 10/26/24 08:27 Oxygen Delivery Method Room Air 10/26/24 08:27 BMI result Body Mass Index 22.0 Assessment & Plan Assessment & Plan (1) Urinary urgency: Code(s): R39.15 - Urgency of urination Plan Most likely UTI vs stone vs prostatitis vs BPH UA in the office shows +pro, 1+blo, 2+ketones Plan - A urine culture will be sent to confirm the presence of infection. - Antibiotics will be prescribed for a few days to address potential infection. - drink lots of fluids - Blood work will be conducted to assess prostate health, given the presence of blood in urine. - Flomax will be prescribed to facilitate the passage of any potential kidney stones. - Consideration for a CT scan if symptoms persist or worsen. Orders: Orders PSA,Total (Free>4and<10) Today R39.15 - Urgency of urination Urine Culture Today N39.0 - Urinary tract infection, site not specified Medications: New cefuroxime axetil 500 mg PO Q12H 10 tabs 0RF tamsulosin (Flomax) 0.4 mg PO DAILY 7 caps 0RF 7 days Coding Level of Care Code Est Pt Level 4 (65749) Diagnoses Urinary urgency R39.15
== END 2024-10-26 10:01 | disposition home or self-care (01) ==
PROVIDERS: PCP Nurse Practitioner Family; Visit Provider Physician Assistant Medical
DX: Z13.9 Encounter for screening, unspecified (principal); R39.15 Urgency of urination

== ENCOUNTER 2024-11-15 09:12 | Outpatient (REF) | payer MEDICARE, SELFPAY ==
--- OUTSIDE RECORDS SUMMARY | 2024-11-15 09:55 | XMS_ITS | Clinical Summary ---
Author Organization [facility] Address [address] [place] [id number] Phone Care Team Providers Care Pharmaceutical Scientist Name Role Phone Unavailable Primary Care Provider [...] disorder. He briefly saw Dr. Shaikh in [place] years ago, and has seen Dr. Rios. Sed rate and CRP and MO were negative in November. I suggested he go [place] [facility] [place] but says he cannot drive to [place]. He may need a muscle biopsy Insomnia 09/21/2013 Immunizations Immunization Administration Dates Next Due INFLUENZA, SPLIT VIRUS, TRIVALENT PF 02/21/2016 INFLUENZA, SPLIT VIRUS, TRIV ALENT W/ PRESERVATIVE IM 12/21/2014,01/11/2014,02/22/2013,2012 Influenza Quadrivalent Prese rvative Free IM 01/16/2018 Influenza Quadrivalent w/ Preservative IM 02/02/2019 Influenza, Unspecified Formulation 01/18/2020, Td, unspecified formulation [...] (12/14/2018 2:22 PM EDT) HDL 43 mg/dL [facility] Comment: Interpretation <40 mg/dL: Low HDL cholesterol (major risk factor for CHD) Greater than or equal to 60 mg/dL: High HDL cholesterol ( negative risk factor for CHD) HDL - cholesterol is affected by a number of factors, e.g. smoking, excerise, hormones, sex and age. CHOLESTEROL 185 0 - 240 mg/dL [facility] TRIGLYCERIDES 188(H) 30 - 160 mg/dL [facility] LDL 104 50 - 129 mg/dL [facility] Comment: LDL levels in terms of risk for coronary heart disease: <100 mg/dL: Optimal 100-129 mg/dL: Near or above optimal 130-159 mg/dL: Borderline high 160-189 mg/dL: High >190 mg/dL: Very High CARDIAC RISK RATIO 4.3 3.4 - 5.0 C [facility] Blood 12/14/2018 2:22 PM EDT 12/14/2018 2:25 PM EDT us Alejandro Moran MD LAB BLOOD ORDERABLES Final Resu lt [facility] [address] [place] [address] from Last 3 Months or Most Recently [...] It is not the complete legal health record.[facility]
--- OUTSIDE RECORDS SUMMARY | 2024-11-15 09:55 | XMS_ITS | Clinical Summary ---
Author Organization [facility] Address [address] [place] [address] Care Team Providers Care Engagement Executive Name Role Phone LawVineet castro Cy ROGERS [...] age to complete this topic Care Teams Engagement Executive Relationship Specialty Start Date End Date Vineet Cui NP [address] [facility] [place], [place] PCP - General 08/31/21
[2024-11-15 13:13] LABS: Appearance Urine Clear; Glucose Urine UA Negative (Negative); PH 5.5 (5.0-9.0); Specific Gravity - Urine 1.025 (1.005-1.025)
[2024-11-15 13:34] LABS: MANUAL DIFF FLAG NO
[2024-11-15 13:41] LABS: Hematocrit 44.3 % (42.0-52.0); Hemoglobin 15.2 g/dl (14.0-18.0); Imm Gran Abs Auto 0.02 X10*3/uL (0.00-0.03); Imm Gran Pct Auto 0.3 % (0.0-0.4); Lymphocytes Absolute Auto 2.5 X10*3/uL (1.2-4.9); Mean Corpuscular HGB Conc 34.3 g/dl (31.0-36.0); Mean Corpuscular Hemoglobin 30.7 pg (27.0-33.0); Mean Corpuscular Volume 89.5 fL (80.0-98.0); NRBC Abs Auto 0.000 X10*3/uL (0.0-0.012); NRBC Pct Auto 0.0 /100WBC (0.0-0.2); Platelet Count 234 X10*3/uL (160-400); Red Blood Count 4.95 X10*6/uL (4.60-5.80); White Blood Count 7.3 X10*3/uL (4.8-10.8)
[2024-11-15 14:09] LABS: Alanine Aminotransferase 22 U/L (0-40); Albumin Level 4.8 g/dL (3.5-5.0); Alkaline Phosphatase 61 U/L (39-117); Anion Gap 14 (12-20); Aspartate Amino Transferase 29 U/L (5-37); Blood Urea Nitrogen 23 mg/dL (9-16); Calcium 9.4 mg/dL (8.4-10.2); Carbon Dioxide 25 mmol/L (22-29); Chloride 104 mmol/L (96-108); Cholesterol 250 mg/dL (<200); Estimated Glomerular Filt Rate > 60; HDL Cholesterol 49 mg/dL (>40); Potassium 3.9 mmol/L (3.3-5.1); Sodium 139 mmol/L (135-145); Total Protein 7.1 g/dL (6.5-8.0); Triglycerides 75 mg/dL (<150)
== END 2024-11-15 09:13 | disposition home or self-care (01) ==
LOC: HO.HMGCLDS 09:12
PROVIDERS: PCP Nurse Practitioner Family; Visit Provider Nurse Practitioner Family
DX: Z00.00 Encounter for general adult medical examination without abnormal findings (principal); I10 Essential (primary) hypertension; Z12.5 Encounter for screening for malignant neoplasm of prostate
CPT/HCPCS: 36415; 80053; 80061; 81003; 84153; 84443; 85025

== ENCOUNTER 2024-11-25 09:52 | Outpatient (AMB) | payer MEDICARE, SELFPAY ==
[2024-11-25 09:58] VITALS: BP 104/60; PULSE 67; RESP 16; TEMP 36.6; O2SAT 98; BMI 22.3
--- NOTE | 2024-11-25 09:58 | A.OFFPC_ITS ---
Vital Signs 11/25/24 09:58 Height 5 ft 9 in Weight 151 lb BMI 22.3 BP 104/60 Blood Pressure Location Lt brachial Position Sitting Respiration 16 Pulse 67 Pulse Source Pulse Oximeter Temp 97.9 F Temp Source Oral Pulse Oximetry (%) 98 Oxygen Delivery Method Room Air Intake Visit Reasons: 6m f/u Candle Pourer Required: No Accompanied by: Self / Same As Patient Allergies sertraline (From Zoloft) Allergy (Intermediate, Verified 11/25/24 10:22) Fatigued Medication List - Last Reconciled 11/25/24 by Vineet Cui, NEWSPAPER PRESS OPERATOR APPRENTICE- tamsulosin (Flomax) 0.4 mg PO DAILY 7 days Tobacco use date assessed: 11/25/24 Dental Screening Dental Screen Date: 11/25/24 Did you have a dental visit in the last 12 months?: Yes Did you have a dental problem in the last 6 months where you did not have access to dental care?: No Was dental information given to patient?: Patient has dentist HPI 6m f/u HPI Details Chief Complaint The patient presents for a follow-up to discuss laboratory results and ongoing health concerns. History of Present Illness The patient is a 64-year-old male presenting with a generalized follow-up visit to review laboratory results. He reports a history of dyslipidemia but believes his cholesterol levels are acceptable and declines any statin or non-statin therapy. The patient has a known history of bradycardia and has previously consulted with cardiology. He is currently not interested in further cardiology consultations and reports feeling well despite the bradycardia. He also reports symptoms suggestive of benign prostatic hyperplasia, including weak urinary stream and increased frequency. His PSA levels are within normal limits, and he is in contact with a urologist for further management. The patient declines all vaccinations and denies experiencing any chest pain or dyspnea. Social History Health Maintenance - Declines all vaccinations Review of Systems - Cardiovascular: Denies chest pain or d yspnea - Genitourinary: Reports weak urinary st ream and increased frequency Physical Exam General: Cooperative, healthy appearing, comfortable, no acute distress and well developed Orientation: Patient oriented x3 Limitations: No limitations Head: Normal to inspection Ears: Hearing grossly normal bilaterally Nose: Normal external nose present Face and sinus: Normal facial exam Eyes: Appearance normal, both eyes and all related structures Neck: Normal visual inspection and Yes full ROM Respiratory: Normal respiratory effort and able to speak in complete sentences. Clear to auscultation bilaterally Cardiovascular: Bradycardic. Normal S1 and S2 GI: Normal to inspection. Soft to palpation and nontender Skin: No rashes or lesions noted Neuro: Patient oriented x3 Extremities: Normal to inspection Results Plan Patient was informed and verbally consented to the use of an ambient scribe for clinic note documentation during this visit. 1. Dyslipidemia The patient reports a history of dyslipidemia but is comfortable with his current cholesterol levels and declines any statin or non-statin therapy. 2. Bradycardia The patient has a known history of bradycardia and has previously consulted with cardiology but is not interested in further consultations at this time. 3. Benign Prostatic Hyperplasia The patient reports symptoms of benign prostatic hyperplasia, including weak urinary stream and increased frequency, microhematuria and is in contact with a urologist for management. Discussion Notes During the visit, we discussed the patient's dyslipidemia and his decision to decline statin therapy, as he is comfortable with his current cholesterol levels. We also reviewed his history of bradycardia, and he expressed no intere st in further cardiology consultations at this time. Regarding his urinary symptoms, he is already in contact with a urologist for management of benign prostatic hyperplasia. Patient Instructions - Follow up with urologist as planned fo r urinary symptoms. - Return for follow-up in six months for lab review. [facility] Surgical History No pertinent past surgical history Family History Father Diabetes Mother Cancer Social History Housing: House Patient Tobacco Use Status: Former Tobacco user e-Cigarette/Vaping Use: Never Used Second Hand Smoke Exposure: No Substance Use Type: Marijuana service: No Current occupational status: disabled Cognitive needs: No Hearing needs: No Vision needs: Yes Questionnaire Thrive Questionnaire Date Thrive assessed: 11/25/24 I am a: Patient What is your living situation today?: I have a steady place to live Within the past 12 months, did the food you bought not last and you didn't have the money to get more?: Never true Within the past 12 months, did you worry whether your food would run out before you got money to buy more?: Never true Do you have trouble paying for medicines?: No Do you have trouble getting transportation to medical appointments?: No Do you have trouble paying your heating and electricity bill?: No Do you have trouble taking care of your child, family member or friend?: No Do you have trouble with day-to-day activities such as bathing, preparing meals, shopping, managing finances, etc.?: I choose not to answer this question Are you currently unemployed and looking for a job?: No Are you interested in more education?: No Please select the resources that you would like help with: None Currently or been in a relationship where the following occur: No concerns reported THRIVE Score: 0 AUDIT C Alcohol Use Questionnaire (AUDIT-C) 1. How often do you have a drink containing alcohol?: Never 3. How often do you have six or more drinks on one occasion?: Never Total Score: 0 OSKAR-7 AMB Questionnaire OSKAR-7 Date OSKAR - 7 assessed: 11/25/24 Feeling nervous, anxious, or on edge: 0 = Not at all Not being able to stop or control worryin = Not at all Worrying too much about different things: 1 = Several days Trouble relaxin = More than half the days Being so restless that it is hard to sit still: 0 = Not at all Becoming easily annoyed or irritable: 0 = Not at all Feeling afraid as if something awful might happen: 0 = Not at all Total OSKAR-7 score (0-4 normal; 5-9 mild; 10-14 moderate; 15-21 severe): 3 Source: Developed by Drs. Devon Dunn, Dominique Bowman, Hira Raymundo and colleagues, with an educational thomas from [employer]. Physical exam (Primary Care) Vital Signs: Last Vital Signs Temp 97.9 F 11/25/24 09:58 Pulse 67 11/25/24 09:58 Resp 16 11/25/24 09:58 BP 104/60 11/25/24 09:58 Pulse Ox 98 11/25/24 09:58 Oxygen Delivery Method Room Air 11/25/24 09:58 BMI result Body Mass Index 22.3 Tobacco/Smoking Status: Tobacco use Status Tobacco use date assessed 11/25/24 11/25/24 10:06 Patient Tobacco Use Status Former Tobacco user 11/25/24 10:06 e-Cigarette/Vaping Use Never Used 11/25/24 10:06 Thrive Assessment: Date of Thrive Assessment Date Thrive assessed 11/25/24 11/25/24 10:06 Currently or been in a relationship where the following occur: No concerns reported Coding Level of Care Code Est Pt Level 3 (54190) Diagnoses Bradycardia R00.1 Dyslipidemia E78.5 Enlarged prostate N40.0 Assessment & Plan Assessment & Plan (1) Bradycardia: Code(s): R00.1 - Bradycardia, unspecified Category: Medical (2) Dyslipidemia: Code(s): E78.5 - Hyperlipidemia, unspecified Category: Medical (3) Enlarged prostate: Code(s): N40.0 - Benign prostatic hyperplasia without lower urinary tract symptoms Category: Medical Plan .
--- OUTSIDE RECORDS SUMMARY | 2024-11-25 10:54 | XMS_ITS | Clinical Summary ---
Author Organization [facility] Address [address] [place] [address] Care Team Providers Care Shotblast Operator Name Role Phone LawVineet castro Cy [place] [...] (2 - Td or Tdap) 01/22/2023 01/22/2013 Depression Screening 03/24/2024 COVID-19 Vaccine (1 - 2023-2 5 season) 2024 Influenza Vaccine (#1) 2024 12/21/2014 RSV Immunization [...] age to complete this topic Care Teams Shotblast Operator Relationship Specialty Start Date End Date Vineet Cui NP [address] [facility] [place], [place] PCP - General 08/31/21
--- OUTSIDE RECORDS SUMMARY | 2024-11-25 10:54 | XMS_ITS | Encounter Summary ---
Author Organization [facility] Address [address] [place] [address] Phone Care Team Providers Care Reserve Operator Name Role Phone Mercy Cardenas NP Primary Care Provider [phone] Alejandro Moran MD Primary Care Provider Alejandro Moran MD Unavailable [phone] Encounter Details Date Type Department Care Team (Latest Contact Info) Description 02/11/2018 Transcribe Orders [facility] [address] [place] [address] Ana Rios, DO [address] [facility]. [place]. [address] [place] [address] [email or web address] Low testosterone in male (Primary Dx) Social History Tobacco Use Types Packs/Day Years Used Date Smoking Tobacco: Former Smokeless Tobacco: Never Alcohol Use Standard Drinks/Week Comments Yes 1 (1 standard drink = 0.6 oz pur e alcohol) once in a while Sex and Gender Information Value Date Recorded Sex Assigned at Not on file Legal Sex Male 3:03 PM EDT Gender Identity Not on file Sexual Orientation Not on file documented as of this encounter Plan of Treatment Not on file documented as of this encounter Results * (ABNORMAL) Testosterone, total and free (02/11/2018 9:51 AM EST) FREE TESTOSTERONE 4.99 3.87 - 14.7 ng/dL [facility] [address] Comment: (NOTE) ADDITIONAL INFORMATION Testing performed by [facility]. This test was developed and its performance characteristics determined by [facility] in a manner consistent with CLIA requirements. This test has not been cleared or approved by the U.S. Food and Drug Administration. TESTOSTERONE, TOTAL 208(L) 240 - 950 ng/dL [facility] [address] Comment: (NOTE) ADDITIONAL INFORMATION Testing performed by Liquid Chromatography-Tandem Mass Spectrometry (LC-MS/MS). This test was developed and its performance characteristics determined by [facility] in a manner consistent with CLIA requirements. This test has not been cleared or approved by the U.S. Food and Drug Administration. Blood 02/11/2018 9:51 AM EST 02/11/2018 9:53 AM EST us Ana Rios DO LAB BLOOD ORDERABLES Final R esult [facility] [address] [place] [address] documented in this encounter Visit Diagnoses Diagnosis Low testosterone in male- Primary documented in this encounter Care Teams Reserve Operator Relationship Specialty Start Date End Date Mercy Cardenas NP [address] [place] [id number] PCP - General Nurse Practitioner 01/01/18 10/28/18 Alejandro Moran MD [address] [place] [address], [address] [place] [phone] PCP - General Internal Medicine 10/29/18 11/06/23 Alejandro Moran MD [address] [place] [address], [address] [place] [id number] Insurance Assigned Provider 06/30/19 03/30/22 documented as of this encounter Additional Source Comments The information contained in this document represents components of the legal health record. It is not the complete legal health record.[facility]
--- OUTSIDE RECORDS SUMMARY | 2024-11-25 10:54 | XMS_ITS | Clinical Summary ---
Author Organization [facility] Address [address] [place] [phone] Phone Care Team Providers Care Tafe Lecturer Name Role Phone Unavailable Primary Care Provider [...] disorder. He briefly saw Dr. Shaikh in [place] years ago, and has seen Dr. Rios. Sed rate and CRP and MO were negative in November. I suggested he go to [facility] rheumatology but says he cannot drive to [place]. He may need a muscle biopsy Insomnia [...] HEPATITIS C SCREENING 05/31/1979 HIV ONE-TIME SCREENING (18-65 YEARS) 05/31/1979 COLONOSCOPY 2006 FIT TEST 2006 FOBT 2006 SIGMOIDOSCOPY 2006 VIRTUAL COLONOSCOPY 2006 PNEUMOCOCCAL VACCINES (50+ years) (1 of 1 - PCV) 05/31/2011 ZOSTER VACCINES (1 of 2) 05/31/2011 DEPRESSION SCREENING 05/24/2020 05/25/2019 COLOGUARD 06/09/2022 06/10/2019, 05/25/2019 COLORECTAL CANCER SCREENING 06/09/2022 Adult Td,Tdap Booster 01/22/2023 01/22/2013 INFLUENZA VACCINE (#1) 2024 , 01/18/2020, 02/02/2019, Additional history exists COVID-19 VACCINE ( - season) 2024 11/08/2020 LIPID PANEL 06/08/2026 06/08/2021, 11/23, 12/14/2018 RSV VACCINE (1 - 1-dose 75+ [...] (12/14/2018 2:22 PM EDT) HDL 43 mg/dL [facility] Comment: Interpretation <40 mg/dL: Low HDL cholesterol (major risk factor for CHD) Greater than or equal to 60 mg/dL: High HDL cholesterol ( negative risk factor for CHD) HDL - cholesterol is affected by a number of factors, e.g. smoking, excerise, hormones, sex and age. CHOLESTEROL 185 0 - 240 mg/dL [facility] TRIGLYCERIDES 188(H) 30 - 160 mg/dL [facility] LDL 104 50 - 129 mg/dL [facility] Comment: LDL levels in terms of risk for coronary heart disease: <100 mg/dL: Optimal 100-129 mg/dL: Near or above optimal 130-159 mg/dL: Borderline high 160-189 mg/dL: High >190 mg/dL: Very High CARDIAC RISK RATIO 4.3 3.4 - 5.0 C [facility] Blood 12/14/2018 2:22 PM EDT 12/14/2018 2:25 PM EDT us Alejandro Moran MD LAB BLOOD ORDERABLES Final Resu lt [facility] [address] [place] [address] from Last 3 Months or Most Recently [...] It is not the complete legal health record.[facility]
== END 2024-11-25 10:49 | disposition home or self-care (01) ==
LOC: HO.HMCC 09:53
PROVIDERS: PCP Nurse Practitioner Family; Visit Provider Nurse Practitioner Family
DX: R00.1 Bradycardia, unspecified (principal); E78.5 Hyperlipidemia, unspecified; N40.0 Benign prostatic hyperplasia without lower urinary tract symptoms

== ENCOUNTER → 2024-11-25 09:52 | Outpatient (BNVA) | payer MEDICARE, SELFPAY | PROVIDERS: PCP Nurse Practitioner Family; Visit Provider Nurse Practitioner Family | DX: R35.0 Frequency of micturition (principal); R00.1 Bradycardia, unspecified; E78.5 Hyperlipidemia, unspecified; R39.12 Poor urinary stream | CPT/HCPCS: 96127; 99212 ==